=== PATIENT | male | born 1950 | race Caucasian/White ===

== ENCOUNTER → 2016-11-21 | Outpatient (CLI) | payer MEDICARE, BC ==
[~2016-11-21] MED LIST: ASPIR-LOW81 MG PO; BYSTOLIC5 MG PO; MVI; NO HOME MEDICATIONS; VITAMIN C500 MG PO
== END ==
LOC: COL.RAD 14:41
DX: I31.3 Pericardial effusion (noninflammatory) (principal); R79.1 Abnormal coagulation profile
CPT/HCPCS: Q9967

== ENCOUNTER → 2016-11-22 | Outpatient (CLI) | payer MEDICARE, BC | LOC: COL.VAS 12:28 | DX: I31.3 Pericardial effusion (noninflammatory) (principal); R07.89 Other chest pain ==

== ENCOUNTER → 2018-01-27 | Outpatient (CLI) | payer MEDICARE, BC | LOC: COL.RAD 10:17 | DX: Z13.6 Encounter for screening for cardiovascular disorders (principal) ==

== ENCOUNTER 2019-03-31 06:28 | Day surgery (SDC) | payer MEDICARE, BC ==
[~2019-03-31] VITALS: Ht 177.8 cm; Wt 79.6 kg
[2019-03-31 06:50] VITALS: BP 130/68; PULSE 87; TEMP 98.7
[2019-03-31] MEDS ORDERED: MASON NATURAL1200 MG PO (07:20)
[2019-03-31] MEDS ORDERED: VITAMINC1000TA PO (07:20)
[2019-03-31] MEDS ORDERED: CENTRUM CHEWAB1 EAC3 PO (07:21)
[2019-03-31] MEDS ORDERED: ASPIRIN 81M81 MG/TA2 PO (07:21)
[2019-03-31] MEDS ORDERED: LEVOXYL0.025 MG PO (07:22)
[2019-03-31] MEDS ORDERED: NORVASC 10MG10 MG PO (07:22)
[2019-03-31] MEDS ORDERED: LIPITOR 10MG10 MG PO (07:23)
[2019-03-31] MEDS ORDERED: PROAIR HFA0.09 MG/AC IH ×2 (07:23→07:24)
[2019-03-31] MEDS ORDERED: COZAAR 50MG50 MG/TAB PO (07:23)
[2019-03-31] MEDS ORDERED: CLARITIN 1010 MG/TAB PO (07:24)
--- NOTE | 2019-03-31 08:10 | NUR ---
Pt arrives at [facility] via cart. Pt ambulates from cart to recliner with this RN assist without complication. Monitors on and alarms set. Call light within reach. Pt's abdomen soft. Pt's present in room. Pt requests coffee, juice, and muffin. Pt denies any pain or nausea and is alert and answering all questions appropriately.
[2019-03-31 08:11] VITALS: BP 105/64; PULSE 68; TEMP 98.3
[2019-03-31 08:15] VITALS: BP 100/60; PULSE 67
[2019-03-31 08:30] VITALS: BP 108/76; PULSE 72
--- NOTE | 2019-03-31 08:30 | NUR ---
Pt taking food and drink well. No complications voiced, no pain, and no nausea.
[2019-03-31 08:45] VITALS: BP 101/63; PULSE 69
--- NOTE | 2019-03-31 09:00 | NUR ---
Discharge instructions given to patient and . All questions answered to their satisfaction. Handed to them are a thank you card, discharge instructions, a discharge med sheet, and diagnosis information.
--- NOTE | 2019-03-31 09:05 | NUR ---
Pt ambulates out of hospital with steady gait and this RN assist to private vehicle driven by .
== END 2019-03-31 09:05 | disposition home or self-care (01) ==
LOC: SDCO 06:28
DX: Z12.11 Encounter for screening for malignant neoplasm of colon (principal); K57.30 Diverticulosis of large intestine without perforation or abscess without bleeding; G43.909 Migraine, unspecified, not intractable, without status migrainosus; I10 Essential (primary) hypertension; Z79.82 Long term (current) use of aspirin; Z88.8 Allergy status to other drugs, medicaments and biological substances; Z88.0 Allergy status to penicillin; Z85.828 Personal history of other malignant neoplasm of skin
CPT/HCPCS: G0121; J2250; J3010; J7030